=== PATIENT | female | born 1950 ===

== ENCOUNTER 2017-08-19 15:36 | Inpatient (IN) ==
[2017-08-19] MEDS ORDERED: ACETAMINOPHEN 325 MG TABLET PO PRN (19:04)
[2017-08-19] MEDS ORDERED: DEXTROSE 50% 25 GM/50 ML VIAL IV PRN (19:04)
[2017-08-19] MEDS ORDERED: ALBUTEROL 2.5 MG/3 ML NEB RESP TX PRN (19:04)
[2017-08-19] MEDS ORDERED: GLUCAGON 1 MG VIAL IM PRN (19:04)
[2017-08-19] MEDS ORDERED: LEVOFLOXACIN INJ 250 MG in PREMIX 1 EACH IV SCH (20:30)
[2017-08-19] MEDS ORDERED: hydrALAZINE 20 MG/1 ML VIAL IV PRN (20:37)
[2017-08-19] MEDS: ENOXAPARIN 30 MG/0.3 ML SYRINGE SUBCUT SCH (22:01)
[2017-08-19] MEDS: GABAPENTIN 100 MG CAPSULE PO SCH (22:01)
[2017-08-19] MEDS: hydrALAZINE 25 MG TABLET PO SCH (22:02)
[2017-08-19] MEDS: cloNIDine 0.1 MG TABLET PO SCH (22:02)
[2017-08-19] MEDS: INSULIN REGULAR 100 UNIT/ML SUBCUT SCH (22:02)
[2017-08-19] MEDS: SIMVASTATIN 40 MG TABLET PO SCH (22:02)
[2017-08-20] MEDS: ALBUTEROL/IPRATROPIUM 3 ML NEB RESP TX SCH ×4 (02:15→19:12)
[2017-08-20 05:06] LABS: Basophils % 0.3 % (0.0-0.8); Eosinophils # 0.2 10*3/uL (0.0-0.87); Eosinophils % 2.5 % (0.00-10.9); Hematocrit 25.9 VOL% (35.7-47.0); Hemoglobin 8.6 GM/DL (12.0-16.0); Immature Granulocytes % 0.4 %; Immature Granulocytes Absolute 0.03 #; Lymphocytes # 2.1 10*3/uL (1.4-4.0); Lymphocytes % 29.3 % (21.3-54.2); Mean Corpuscular HGB Conc 33.2 GM/DL (32-36); Mean Corpuscular Hemoglobin 30 PG (27-34); Mean Corpuscular Volume 91.2 FL (87-102); Mean Platelet Volume 10.4 FL (9.6-12.0); Monocytes # 0.6 10*3/uL (0.11-0.8); Monocytes % 7.8 % (1.7-12.7); Neutrophils # 4.3 10*3/uL (1.4-7.4); Neutrophils % 59.7 % (38.7-73.9); Platelet Count 100 T/CUMM (130-400); Red Blood Count 2.84 MC/CUMM (3.8-5.5); Red Cell Distribution Width 14.1 % (9.3-17.3); White Blood Count 7.2 T/CUMM (4-12)
[2017-08-20] MEDS: LIOTHYRONINE 25 MCG TABLET PO SCH (05:26)
[2017-08-20 05:43] LABS: Osmolality,Calculated 280.5 MOS/KG (273-304); Potassium 3.9 MMOL/L (3.5-5.1)
[2017-08-20] MEDS ORDERED: PNEUMOCOCCAL VACCINE (13 VALENT) 0.5 ML SYRINGE IM ONE (09:00)
[2017-08-20] MEDS: ASPIRIN EC 81 MG TABLET PO SCH (09:24)
[2017-08-20] MEDS: hydrALAZINE 25 MG TABLET PO SCH ×2 (09:24→20:26)
[2017-08-20] MEDS: cloNIDine 0.1 MG TABLET PO SCH ×2 (09:25→20:27)
[2017-08-20] MEDS: GABAPENTIN 100 MG CAPSULE PO SCH ×3 (09:25→20:27)
[2017-08-20] MEDS: CLOPIDOGREL 75 MG TABLET PO SCH (09:26)
[2017-08-20] MEDS: ISOSORBIDE MONONITRATE 30 MG TABLET PO SCH (09:26)
[2017-08-20] MEDS: PANTOPRAZOLE 40 MG TABLET PO SCH (09:26)
[2017-08-20] MEDS: INSULIN REGULAR 100 UNIT/ML SUBCUT SCH ×4 (10:14→21:30)
[2017-08-20] MEDS: INSULIN GLARGINE 100 UNIT/ML SUBCUT SCH (10:15)
[2017-08-20] MEDS: TOLTERODINE LA 4 MG CAPSULE PO SCH (10:48)
[2017-08-20] MEDS: SIMVASTATIN 40 MG TABLET PO SCH (20:27)
[2017-08-20] MEDS: ENOXAPARIN 30 MG/0.3 ML SYRINGE SUBCUT SCH (20:27)
[2017-08-21] MEDS: ALBUTEROL/IPRATROPIUM 3 ML NEB RESP TX SCH ×3 (00:10→15:04)
[2017-08-21] MEDS: LIOTHYRONINE 25 MCG TABLET PO SCH (06:17)
[2017-08-21 06:23] LABS: Basophils % 0.4 % (0.0-0.8); Eosinophils # 0.3 10*3/uL (0.0-0.87); Eosinophils % 5.2 % (0.00-10.9); Hematocrit 24.2 VOL% (35.7-47.0); Hemoglobin 8.1 GM/DL (12.0-16.0); Immature Granulocytes % 0.4 %; Immature Granulocytes Absolute 0.02 #; Lymphocytes # 1.8 10*3/uL (1.4-4.0); Lymphocytes % 32.3 % (21.3-54.2); Mean Corpuscular HGB Conc 33.5 GM/DL (32-36); Mean Corpuscular Hemoglobin 31 PG (27-34); Mean Corpuscular Volume 91.7 FL (87-102); Mean Platelet Volume 10.8 FL (9.6-12.0); Monocytes # 0.4 10*3/uL (0.11-0.8); Monocytes % 7.6 % (1.7-12.7); Neutrophils # 3.1 10*3/uL (1.4-7.4); Neutrophils % 54.1 % (38.7-73.9); Platelet Count 100 T/CUMM (130-400); Red Blood Count 2.64 MC/CUMM (3.8-5.5); White Blood Count 5.6 T/CUMM (4-12)
[2017-08-21 06:51] LABS: Calcium 7.8 MG/DL (8.5-10.1); Osmolality,Calculated 283.8 MOS/KG (273-304); Potassium 4.1 MMOL/L (3.5-5.1)
[2017-08-21] MEDS: INSULIN REGULAR 100 UNIT/ML SUBCUT SCH ×2 (08:55→11:29)
[2017-08-21] MEDS: CLOPIDOGREL 75 MG TABLET PO SCH (10:27)
[2017-08-21] MEDS: TOLTERODINE LA 4 MG CAPSULE PO SCH (10:27)
[2017-08-21] MEDS: ASPIRIN EC 81 MG TABLET PO SCH (10:28)
[2017-08-21] MEDS: GABAPENTIN 100 MG CAPSULE PO SCH ×2 (10:28→17:36)
[2017-08-21] MEDS: PANTOPRAZOLE 40 MG TABLET PO SCH (10:29)
[2017-08-21] MEDS: ISOSORBIDE MONONITRATE 30 MG TABLET PO SCH (10:29)
[2017-08-21] MEDS: INSULIN GLARGINE 100 UNIT/ML SUBCUT SCH (10:31)
[2017-08-21] MEDS: hydrALAZINE 25 MG TABLET PO SCH (10:33)
[2017-08-21] MEDS: cloNIDine 0.1 MG TABLET PO SCH (10:33)
[2017-08-21 12:38] LABS: Albumin 2.5 G/DL (3.4-5.0); Bilirubin,Direct 0.13 MG/DL (0.0-0.20); Bilirubin,Indirect 0.3 MG/DL (0.0-1.0); Bilirubin,Total 0.4 MG/DL (0.2-1.0)
[2017-08-21 17:32] LABS: Hepatitis A Ab IgM Quant 0.16 Index; Hepatitis A Ab IgM Result Negative (Negative); Hepatitis B Core IgM Quant 0.12 Index; Hepatitis B Core IgM Result Negative (Negative); Hepatitis B Surface Ag Quant < 0.10 Index; Hepatitis B Surface Ag Result Negative (Negative); Hepatitis C Virus Ab Quant 0.04 Index; Hepatitis C Virus Ab Result Negative (Negative)
[2017-08-21] MEDS ORDERED: HEPARIN 10,000 UNIT/10 ML VIAL IV PRN (17:43)
[2017-08-21 17:51] VITALS: BP 154/72
== END 2017-08-21 18:35 | disposition home or self-care (01) | DRG 193 ==
LOC: N.CC 19:15 → N.5E 08-20 14:24
PROVIDERS: ADMIT Internal Medicine; ATTEND Internal Medicine

== ENCOUNTER 2017-12-23 02:37 | Inpatient (IN) ==
[2017-12-23] MEDS ORDERED: DEXTROSE 50% 25 GM/50 ML VIAL IV STA (04:41)
[2017-12-23] MEDS ORDERED: ALBUTEROL 2.5 MG/3 ML NEB RESP TX STA (05:59)
[2017-12-23] MEDS ORDERED: ACETAMINOPHEN 325 MG TABLET PO PRN (07:09)
[2017-12-23] MEDS ORDERED: ONDANSETRON 4 MG/2 ML VIAL IV PRN (07:09)
[2017-12-23] MEDS ORDERED: MORPHINE 4 MG/1 ML VIAL IV PRN (07:09)
[2017-12-23] MEDS ORDERED: FUROSEMIDE 100 MG/10 ML VIAL IV STA (07:15)
[2017-12-23] MEDS ORDERED: NIFEdipine 10 MG CAPSULE PO PRN (07:15)
[2017-12-23] MEDS ORDERED: ENOXAPARIN 30 MG/0.3 ML SYRINGE ONE (07:54)
[2017-12-23] MEDS ORDERED: FUROSEMIDE 100 MG/10 ML VIAL ONE (07:54)
[2017-12-23] MEDS: ENOXAPARIN 30 MG/0.3 ML SYRINGE SUBCUT SCH (08:01)
[2017-12-23] MEDS ORDERED: PANTOPRAZOLE 40 MG TABLET PO ONE (09:19)
[2017-12-23] MEDS ORDERED: POTASSIUM CHLORIDE 20 MEQ TABLET PO ONE (09:19)
[2017-12-23] MEDS ORDERED: GABAPENTIN 100 MG CAPSULE ONE ×3 (09:19→21:43)
[2017-12-23] MEDS ORDERED: cloNIDine 0.1 MG TABLET ONE ×2 (09:19→21:43)
[2017-12-23] MEDS ORDERED: CLOPIDOGREL 75 MG TABLET ONE (09:20)
[2017-12-23] MEDS: CLOPIDOGREL 75 MG TABLET PO SCH (09:22)
[2017-12-23] MEDS: SIMVASTATIN 20 MG TABLET PO SCH (09:22)
[2017-12-23] MEDS: CALCIUM ACETATE 667 MG CAPSULE PO SCH ×3 (09:23→17:44)
[2017-12-23] MEDS: hydrALAZINE 25 MG TABLET PO SCH ×2 (09:24→22:34)
[2017-12-23] MEDS: GABAPENTIN 100 MG CAPSULE PO SCH ×3 (09:24→21:50)
[2017-12-23] MEDS: PANTOPRAZOLE 40 MG TABLET PO SCH (09:24)
[2017-12-23] MEDS: cloNIDine 0.1 MG TABLET PO SCH ×2 (09:25→21:49)
[2017-12-23] MEDS: ISOSORBIDE MONONITRATE 30 MG TABLET PO SCH (09:25)
[2017-12-23] MEDS: SENNA 8.6 MG TABLET PO SCH (09:25)
[2017-12-23] MEDS: POTASSIUM CHLORIDE 10 MEQ TABLET PO SCH ×2 (09:27→21:50)
[2017-12-23] MEDS ORDERED: INSULIN GLARGINE 100 UNIT/ML SUBCUT SCH (19:00)
[2017-12-23] MEDS ORDERED: POTASSIUM CHLORIDE 10 MEQ TABLET PO ONE (21:46)
[2017-12-24] MEDS ORDERED: hydrALAZINE 20 MG/1 ML VIAL IV PRN (00:54)
[2017-12-24] MEDS: LIOTHYRONINE 25 MCG TABLET PO SCH (06:40)
[2017-12-24 07:24] LABS: Basophils % 0.4 % (0.0-0.8); Eosinophils # 0.3 10*3/uL (0.0-0.87); Eosinophils % 3.2 % (0.00-10.9); Hematocrit 36.2 VOL% (35.7-47.0); Hemoglobin 11.7 GM/DL (12.0-16.0); Immature Granulocytes % 0.5 %; Immature Granulocytes Absolute 0.05 #; Lymphocytes # 2.2 10*3/uL (1.4-4.0); Lymphocytes % 22.7 % (21.3-54.2); Mean Corpuscular HGB Conc 32.3 GM/DL (32-36); Mean Corpuscular Hemoglobin 31 PG (27-34); Mean Platelet Volume 12.1 FL (9.6-12.0); Monocytes # 1.1 10*3/uL (0.11-0.8); Monocytes % 11.4 % (1.7-12.7); Neutrophils % 61.8 % (38.7-73.9); Platelet Count 101 T/CUMM (130-400); Red Blood Count 3.77 MC/CUMM (3.8-5.5); Red Cell Distribution Width 16.6 % (9.3-17.3); White Blood Count 9.7 T/CUMM (4-12)
[2017-12-24 07:53] LABS: Calcium 8.8 MG/DL (8.5-10.1); Osmolality,Calculated 288.5 MOS/KG (273-304); Potassium 5.6 MMOL/L (3.5-5.1)
[2017-12-24 07:55] LABS: Troponin I Only 0.368 NG/ML (0.00-0.045)
[2017-12-24 08:00] LABS: Risk Ratio 1.56; Thyroid Stimulating Hormone 0.911 uIU/ml (0.358-3.74); VLDL CHOLESTEROL 19.2 MG/DL
[2017-12-24] MEDS: hydrALAZINE 25 MG TABLET PO SCH ×2 (09:01→21:00)
[2017-12-24] MEDS: SIMVASTATIN 20 MG TABLET PO SCH (09:01)
[2017-12-24] MEDS: CALCIUM ACETATE 667 MG CAPSULE PO SCH ×3 (09:01→16:53)
[2017-12-24] MEDS: ISOSORBIDE MONONITRATE 30 MG TABLET PO SCH (09:02)
[2017-12-24] MEDS: cloNIDine 0.1 MG TABLET PO SCH ×2 (09:02→21:00)
[2017-12-24] MEDS: SENNA 8.6 MG TABLET PO SCH (09:03)
[2017-12-24] MEDS: PANTOPRAZOLE 40 MG TABLET PO SCH (09:03)
[2017-12-24] MEDS: GABAPENTIN 100 MG CAPSULE PO SCH ×3 (09:03→20:59)
[2017-12-24] MEDS: ENOXAPARIN 30 MG/0.3 ML SYRINGE SUBCUT SCH (09:04)
[2017-12-24] MEDS: POTASSIUM CHLORIDE 10 MEQ TABLET PO SCH ×2 (09:04→21:00)
[2017-12-24] MEDS: CLOPIDOGREL 75 MG TABLET PO SCH (09:04)
[2017-12-24] MEDS ORDERED: INSULIN GLARGINE 100 UNIT/ML SUBCUT SCH (16:55)
[2017-12-25] MEDS: ALBUTEROL/IPRATROPIUM 3 ML NEB RESP TX SCH ×3 (02:00→13:44)
[2017-12-25] MEDS ORDERED: ALBUTEROL 2.5 MG/3 ML NEB RESP TX PRN (02:10)
[2017-12-25 05:54] LABS: Basophils % 0.4 % (0.0-0.8); Eosinophils % 0.3 % (0.00-10.9); Hematocrit 33.5 VOL% (35.7-47.0); Hemoglobin 10.9 GM/DL (12.0-16.0); Immature Granulocytes % 0.5 %; Immature Granulocytes Absolute 0.05 #; Lymphocytes # 2.2 10*3/uL (1.4-4.0); Mean Corpuscular HGB Conc 32.5 GM/DL (32-36); Mean Corpuscular Hemoglobin 32 PG (27-34); Mean Corpuscular Volume 98.5 FL (87-102); Mean Platelet Volume 12.1 FL (9.6-12.0); Monocytes % 10.3 % (1.7-12.7); Neutrophils # 6.3 10*3/uL (1.4-7.4); Neutrophils % 65.5 % (38.7-73.9); Red Cell Distribution Width 16.5 % (9.3-17.3); White Blood Count 9.7 T/CUMM (4-12)
[2017-12-25 06:09] LABS: Platelet Count 92 T/CUMM (130-400)
[2017-12-25] MEDS: LIOTHYRONINE 25 MCG TABLET PO SCH (06:09)
[2017-12-25 06:18] LABS: Calcium 8.9 MG/DL (8.5-10.1); Osmolality,Calculated 286.2 MOS/KG (273-304)
[2017-12-25 06:21] LABS: Troponin I Only 0.233 NG/ML (0.00-0.045)
[2017-12-25 06:22] LABS: Potassium 6.8 MMOL/L (3.5-5.1)
[2017-12-25] MEDS ORDERED: SODIUM POLYSTYRENE SULFATE 15 GM/60 ML BOTTLE PO ONE (06:27)
[2017-12-25] MEDS: CALCIUM ACETATE 667 MG CAPSULE PO SCH ×2 (12:59→13:16)
[2017-12-25] MEDS: GABAPENTIN 100 MG CAPSULE PO SCH (13:00)
[2017-12-25] MEDS: POTASSIUM CHLORIDE 10 MEQ TABLET PO SCH (13:01)
[2017-12-25] MEDS: ENOXAPARIN 30 MG/0.3 ML SYRINGE SUBCUT SCH (13:02)
[2017-12-25] MEDS: SENNA 8.6 MG TABLET PO SCH (13:02)
[2017-12-25 13:06] VITALS: BP 189/77
[2017-12-25] MEDS: cloNIDine 0.1 MG TABLET PO SCH (13:17)
[2017-12-25] MEDS: PANTOPRAZOLE 40 MG TABLET PO SCH (13:17)
[2017-12-25] MEDS: CLOPIDOGREL 75 MG TABLET PO SCH (13:17)
[2017-12-25] MEDS: SIMVASTATIN 20 MG TABLET PO SCH (13:17)
[2017-12-25] MEDS: hydrALAZINE 25 MG TABLET PO SCH (13:17)
[2017-12-25] MEDS: ISOSORBIDE MONONITRATE 30 MG TABLET PO SCH (13:17)
== END 2017-12-25 15:04 | disposition home or self-care (01) | DRG 291 ==
LOC: EDBD → EDUNIT# → N.ED 02:37 → N.EDINP 07:06 → N.5E 12-24 00:13
PROVIDERS: ADMIT Internal Medicine; ATTEND Internal Medicine

== ENCOUNTER 2018-04-28 09:35 | Inpatient (IN) ==
[2018-04-28] MEDS ORDERED: DEXTROSE 50% 25 GM/50 ML VIAL IV STA (09:48)
[2018-04-28] MEDS ORDERED: SODIUM BICARBONATE 50 MEQ/50 ML VIAL IV STA (09:48)
[2018-04-28] MEDS ORDERED: INSULIN REGULAR 100 UNIT/ML IV STA (09:48)
[2018-04-28] MEDS ORDERED: CALCIUM CHLORIDE 1,000 MG/10 ML SYRINGE IV STA (09:48)
[2018-04-28] MEDS ORDERED: DEXTROSE 50% 25 GM/50 ML SYRINGE IV ONE ×2 (09:51→12:15)
[2018-04-28] MEDS ORDERED: SODIUM BICARBONATE 50 MEQ/50 ML SYRINGE IV ONE (09:56)
[2018-04-28 10:16] LABS: Basophils % 0.5 % (0.0-0.8); Eosinophils # 0.3 10*3/uL (0.0-0.87); Eosinophils % 5.1 % (0.00-10.9); Hematocrit 36.8 VOL% (35.7-47.0); Immature Granulocytes % 0.3 %; Immature Granulocytes Absolute 0.02 #; Lymphocytes # 1.7 10*3/uL (1.4-4.0); Lymphocytes % 26.2 % (21.3-54.2); Mean Corpuscular HGB Conc 32.6 GM/DL (32-36); Mean Corpuscular Hemoglobin 32 PG (27-34); Mean Corpuscular Volume 97.9 FL (87-102); Mean Platelet Volume 10.6 FL (9.6-12.0); Monocytes # 0.5 10*3/uL (0.11-0.8); Monocytes % 6.9 % (1.7-12.7); Platelet Count 114 T/CUMM (130-400); Red Blood Count 3.76 MC/CUMM (3.8-5.5); White Blood Count 6.5 T/CUMM (4-12)
[2018-04-28 10:27] LABS: INR 1.1; PT Patient Result 11.4 SECS
[2018-04-28 10:37] LABS: Partial Thromboplastin Time 61.4 SECS (0-40)
[2018-04-28 10:46] LABS: Albumin 3.5 G/DL (3.4-5.0); Bilirubin,Total 0.9 MG/DL (0.2-1.0); Calcium 8.7 MG/DL (8.5-10.1); Osmolality,Calculated 285.7 MOS/KG (273-304); Potassium 4.8 MMOL/L (3.5-5.1); Thyroid Stimulating Hormone 2.9 uIU/ml (0.358-3.74); Total Protein 7.7 G/DL (6.4-8.3)
[2018-04-28 10:48] LABS: Troponin I Only 0.049 NG/ML (0.00-0.045)
[2018-04-28 11:00] LABS: Apearance,Urine CLEAR (Clear); Bacteria,Urine Occasional /HPF (Few); Bilirubin,Urine Negative (Negative); Blood, Urine Negative (Negative); Glucose,Urine (UA) >=500 mg/dL (Negative); Ketones,Urine Negative (Negative); Mucus,Urine Occasional /LPF (Occasional); Nitrite,Urine Negative (Negative); Protein,Urine >=500 MG/DL; RBC,Urine 2 /HPF (0-4); Squamous Epithelial Cell,Urine Occasional /HPF (0-10); Urine Color Yellow (Yellow); Urine Urobilinogen < 2.0 EU/DL (0.2-1.0); WBC,Urine 2 /HPF (0-6)
[2018-04-28 11:03] LABS: Barbiturates Screen,Urine Negative (Negative); Benzodiazepines Screen,Urine Negative (Negative); Cannabinoid Screen,Urine Negative (Negative); Opiate Screen,Urine Negative (Negative); Phencyclidine Screen,Urine Negative (Negative)
[2018-04-28] MEDS ORDERED: ACETAMINOPHEN 500 MG TABLET PO PRN (11:23)
[2018-04-28] MEDS ORDERED: NICOTINE 21 MG/24 HR PATCH TRANSDERM PRN (11:23)
[2018-04-28] MEDS ORDERED: LACTULOSE 20 GM/30 ML UDCUP PO PRN (11:23)
[2018-04-28] MEDS ORDERED: ONDANSETRON 4 MG/2 ML VIAL IV PRN (11:23)
[2018-04-28] MEDS ORDERED: DEXTROSE 50% 25 GM/50 ML VIAL IV PRN (11:23)
[2018-04-28] MEDS ORDERED: GLUCAGON 1 MG VIAL IM PRN (11:23)
[2018-04-28] MEDS: INSULIN LISPRO 100 UNIT/ML SUBCUT SCH ×3 (12:20→20:08)
[2018-04-28] MEDS: DEXTROSE 5% 1,000 ML IV SCH (14:03)
[2018-04-28 14:16] LABS: Calcium 9.1 MG/DL (8.5-10.1); Osmolality,Calculated 286.4 MOS/KG (273-304); Potassium 4.5 MMOL/L (3.5-5.1)
[2018-04-28] MEDS: CALCIUM ACETATE 667 MG CAPSULE PO SCH ×2 (14:30→17:01)
[2018-04-28] MEDS: GABAPENTIN 100 MG CAPSULE PO SCH ×2 (15:22→21:12)
[2018-04-28] MEDS ORDERED: LIDOCAINE 1% 20 ML VIAL ONE (17:13)
[2018-04-28] MEDS ORDERED: hydrALAZINE 20 MG/1 ML VIAL IV PRN (19:50)
[2018-04-28] MEDS ORDERED: INSULIN GLARGINE 100 UNIT/ML SUBCUT SCH (21:00)
[2018-04-28] MEDS: hydrALAZINE 25 MG TABLET PO SCH (21:12)
[2018-04-29] MEDS: hydrALAZINE 20 MG/1 ML VIAL IV PRN ×7 (01:11→23:13)
[2018-04-29 03:06] LABS: Basophils % 0.5 % (0.0-0.8); Eosinophils # 0.7 10*3/uL (0.0-0.87); Eosinophils % 8.3 % (0.00-10.9); Hematocrit 33.2 VOL% (35.7-47.0); Hemoglobin 10.7 GM/DL (12.0-16.0); Immature Granulocytes % 0.3 %; Immature Granulocytes Absolute 0.02 #; Lymphocytes # 1.8 10*3/uL (1.4-4.0); Lymphocytes % 23.1 % (21.3-54.2); Mean Corpuscular HGB Conc 32.2 GM/DL (32-36); Mean Corpuscular Hemoglobin 32 PG (27-34); Mean Corpuscular Volume 98.2 FL (87-102); Monocytes # 0.5 10*3/uL (0.11-0.8); Monocytes % 6.7 % (1.7-12.7); Neutrophils # 4.9 10*3/uL (1.4-7.4); Neutrophils % 61.1 % (38.7-73.9); Platelet Count 110 T/CUMM (130-400); Red Blood Count 3.38 MC/CUMM (3.8-5.5); Red Cell Distribution Width 15.9 % (9.3-17.3)
[2018-04-29 03:14] LABS: Potassium 4.6 MMOL/L (3.5-5.1)
[2018-04-29] MEDS: DEXTROSE 5% 1,000 ML IV SCH (03:24)
[2018-04-29] MEDS: LIOTHYRONINE 25 MCG TABLET PO SCH (06:15)
[2018-04-29] MEDS: INSULIN LISPRO 100 UNIT/ML SUBCUT SCH ×4 (07:58→20:12)
[2018-04-29] MEDS: hydrALAZINE 25 MG TABLET PO SCH ×2 (08:10→20:21)
[2018-04-29] MEDS: SENNA 8.6 MG TABLET PO SCH (08:10)
[2018-04-29] MEDS: CALCIUM ACETATE 667 MG CAPSULE PO SCH ×3 (08:10→17:33)
[2018-04-29] MEDS: PANTOPRAZOLE 40 MG TABLET PO SCH (08:10)
[2018-04-29] MEDS: SIMVASTATIN 20 MG TABLET PO SCH (08:10)
[2018-04-29] MEDS: ISOSORBIDE MONONITRATE 60 MG TABLET PO SCH (08:10)
[2018-04-29] MEDS: GABAPENTIN 100 MG CAPSULE PO SCH ×3 (08:10→20:21)
[2018-04-29] MEDS ORDERED: CLOPIDOGREL 75 MG TABLET PO SCH (09:00)
[2018-04-29] MEDS ORDERED: HEPARIN 10,000 UNIT/10 ML VIAL IV PRN (10:26)
[2018-04-29] MEDS ORDERED: diphenhydrAMINE CAP 25 MG CAPSULE PO PRN (22:01)
[2018-04-30] MEDS: hydrALAZINE 20 MG/1 ML VIAL IV PRN ×4 (02:19→17:18)
[2018-04-30 03:57] LABS: Basophils % 0.3 % (0.0-0.8); Eosinophils # 0.6 10*3/uL (0.0-0.87); Eosinophils % 6.5 % (0.00-10.9); Hematocrit 33.5 VOL% (35.7-47.0); Hemoglobin 10.8 GM/DL (12.0-16.0); Immature Granulocytes % 0.4 %; Immature Granulocytes Absolute 0.04 #; Lymphocytes # 2.6 10*3/uL (1.4-4.0); Lymphocytes % 26.3 % (21.3-54.2); Mean Corpuscular HGB Conc 32.2 GM/DL (32-36); Mean Corpuscular Hemoglobin 31 PG (27-34); Mean Corpuscular Volume 97.4 FL (87-102); Mean Platelet Volume 11.5 FL (9.6-12.0); Monocytes # 0.8 10*3/uL (0.11-0.8); Neutrophils # 5.7 10*3/uL (1.4-7.4); Neutrophils % 58.5 % (38.7-73.9); Red Blood Count 3.44 MC/CUMM (3.8-5.5); Red Cell Distribution Width 16.2 % (9.3-17.3); White Blood Count 9.8 T/CUMM (4-12)
[2018-04-30 03:59] LABS: Platelet Count 80 T/CUMM (130-400)
[2018-04-30 04:22] LABS: Calcium 8.3 MG/DL (8.5-10.1); Osmolality,Calculated 272.2 MOS/KG (273-304); Potassium 4.7 MMOL/L (3.5-5.1)
[2018-04-30 04:44] LABS: Hypochromasia 1+; Ovalocytes Slight; Platelet Estimate Decreased
[2018-04-30] MEDS: LIOTHYRONINE 25 MCG TABLET PO SCH (06:39)
[2018-04-30] MEDS: CALCIUM ACETATE 667 MG CAPSULE PO SCH ×3 (08:26→16:28)
[2018-04-30] MEDS: PANTOPRAZOLE 40 MG TABLET PO SCH (08:26)
[2018-04-30] MEDS: ISOSORBIDE MONONITRATE 60 MG TABLET PO SCH (08:26)
[2018-04-30] MEDS: hydrALAZINE 25 MG TABLET PO SCH ×4 (08:27→20:19)
[2018-04-30] MEDS: SIMVASTATIN 20 MG TABLET PO SCH (08:27)
[2018-04-30] MEDS: GABAPENTIN 100 MG CAPSULE PO SCH ×3 (08:27→20:20)
[2018-04-30] MEDS: SENNA 8.6 MG TABLET PO SCH (08:27)
[2018-04-30] MEDS: INSULIN LISPRO 100 UNIT/ML SUBCUT SCH (08:29)
[2018-04-30] MEDS ORDERED: LOSARTAN 25 MG TABLET PO SCH (12:00)
[2018-05-01] MEDS: hydrALAZINE 20 MG/1 ML VIAL IV PRN (04:27)
[2018-05-01] MEDS: LIOTHYRONINE 25 MCG TABLET PO SCH (06:12)
[2018-05-01] MEDS: SIMVASTATIN 20 MG TABLET PO SCH (08:28)
[2018-05-01] MEDS: ISOSORBIDE MONONITRATE 60 MG TABLET PO SCH (08:28)
[2018-05-01] MEDS: GABAPENTIN 100 MG CAPSULE PO SCH ×3 (08:28→21:24)
[2018-05-01] MEDS: SENNA 8.6 MG TABLET PO SCH (08:28)
[2018-05-01] MEDS: PANTOPRAZOLE 40 MG TABLET PO SCH (08:28)
[2018-05-01] MEDS: OLMESARTAN 20 MG TABLET PO SCH (08:30)
[2018-05-01] MEDS: CALCIUM ACETATE 667 MG CAPSULE PO SCH ×3 (08:30→16:41)
[2018-05-01] MEDS: ASPIRIN EC 81 MG TABLET PO SCH (12:03)
[2018-05-02] MEDS: hydrALAZINE 20 MG/1 ML VIAL IV PRN (01:13)
[2018-05-02] MEDS ORDERED: hydrALAZINE 20 MG/1 ML VIAL IV PRN (04:06)
[2018-05-02 04:59] LABS: Basophils % 0.4 % (0.0-0.8); Eosinophils # 0.6 10*3/uL (0.0-0.87); Eosinophils % 7.5 % (0.00-10.9); Hematocrit 31.5 VOL% (35.7-47.0); Hemoglobin 10.4 GM/DL (12.0-16.0); Immature Granulocytes % 0.4 %; Immature Granulocytes Absolute 0.03 #; Lymphocytes # 1.6 10*3/uL (1.4-4.0); Mean Corpuscular Hemoglobin 32 PG (27-34); Mean Platelet Volume 11.3 FL (9.6-12.0); Monocytes # 0.7 10*3/uL (0.11-0.8); Monocytes % 9.1 % (1.7-12.7); Neutrophils % 62.6 % (38.7-73.9); Platelet Count 86 T/CUMM (130-400); Red Blood Count 3.28 MC/CUMM (3.8-5.5); Red Cell Distribution Width 15.8 % (9.3-17.3)
[2018-05-02 05:17] LABS: Calcium 8.8 MG/DL (8.5-10.1); Osmolality,Calculated 279.7 MOS/KG (273-304); Potassium 4.8 MMOL/L (3.5-5.1)
[2018-05-02] MEDS: LIOTHYRONINE 25 MCG TABLET PO SCH (06:18)
[2018-05-02 07:13] LABS: Eosinophils 6 % (0-10); Hypochromasia 1+; Lymphocytes 15 % (20-55); Ovalocytes Slight; Platelet Estimate Decreased; Segmented Neutrophils 72 % (50-85); Total Cells Counted 100
[2018-05-02 08:05] VITALS: BP 201/85
[2018-05-02] MEDS ORDERED: MINOXIDIL 2.5 MG TABLET PO SCH (09:30)
[2018-05-02] MEDS: CALCIUM ACETATE 667 MG CAPSULE PO SCH ×2 (12:29→17:54)
[2018-05-02] MEDS: GABAPENTIN 100 MG CAPSULE PO SCH ×2 (12:30→14:37)
[2018-05-02] MEDS: ISOSORBIDE MONONITRATE 60 MG TABLET PO SCH (14:37)
[2018-05-02] MEDS: OLMESARTAN 20 MG TABLET PO SCH (14:37)
[2018-05-02] MEDS: SENNA 8.6 MG TABLET PO SCH (14:37)
[2018-05-02] MEDS: SIMVASTATIN 20 MG TABLET PO SCH (14:37)
[2018-05-02] MEDS: ASPIRIN EC 81 MG TABLET PO SCH (14:37)
[2018-05-02] MEDS: PANTOPRAZOLE 40 MG TABLET PO SCH (14:37)
== END 2018-05-02 18:13 | disposition home or self-care (01) | DRG 308 ==
LOC: EDUNIT# → N.ED 09:35 → N.EDINP 11:23 → N.CC 12:45 → N.TELES 04-30 17:02
PROVIDERS: ADMIT Internal Medicine; ATTEND Internal Medicine